=== PATIENT | male | born 2000 | race Two or more races ===

== ENCOUNTER 2018-03-26 02:21 | Emergency (ER) | payer BC ==
[~2018-03-26] VITALS: Ht 165.1 cm; Wt 63.5 kg
[2018-03-26 02:33] VITALS: BP 125/75
--- NOTE | 2018-03-26 03:11 | PHYS DOC ---
Past Medical History Past Medical History: No Pertinent History Past Surgical History: No Surgical History Alcohol Use: None Drug Use: None Adult General Chief Complaint Chief Complaint: FOOT INJURY PAIN HPI HPI Patient is a 17 year old male presenting with concern over right ankle problem. Apparently he was in a soccer game this evening when he got home he realized he was having some trouble dorsiflexing his right ankle all the way he could still do it but he was asymmetric no pain no trauma no back pain no numbness Physical Exam Physical Exam Constitutional: Well developed, well nourished, no acute distress, non-toxic appearance. [] HENT: Normocephalic, atraumatic, bilateral external ears normal, oropharynx moist, no oral exudates, nose normal. [] Eyes: PERRLA, EOMI, conjunctiva normal, no discharge. [] Normal effort no increased work of breathing Back: No tenderness, no CVA tenderness. [] Extremities: No tenderness, no cyanosis, no clubbing, ROM intact, no edema. [] Pulses present no swelling of the ankle Neurologic: Patient does have subtle decreased strength with right ankle dorsiflexion plantar flexion is intact bilaterally. Patient is able to range his right ankle fairly well overall but is slightly reduced compared to the left. Psychologic: Affect normal, judgement normal, mood normal. [] Current Patient Data Vital Signs Vital Signs Date Time Temp Pulse Resp B/P (MAP) Pulse Ox O2 Delivery O2 Flow Rate FiO2 03/26/18 02:33 98.7 75 18 125/75 (92) 99 Room Air 98.7 EKG EKG [] Radiology/Procedures Radiology/Procedures [] Course & Med Decision Making Course & Med Decision Making Pertinent Labs and Imaging studies reviewed. (See chart for details) []17-year-old male with a very subtle mild possible foot drop on the right ankle /foot after a soccer game no back pain no other neurologic findings noted. (Is a compression mild peripheral neuropraxia here at the garcia level or ankle level. Patient was advised to wear Brian wrap ice Motrin gradual return to activity keep leg elevated. Dragon Disclaimer Dragon Disclaimer This electronic medical record was generated, in whole or in part, using a voice recognition dictation system. Departure Departure Impression: Primary Impression: Foot drop Disposition: 01 HOME, SELF-CARE Condition: STABLE Additional Instructions: Of the nerve supplying the foot in the garcia area from her soccer game. For the time being please rest ice and wear the Brian wrap and gradually return to normal activities. MONTRELL GUTIERREZ MD Mar 26, 2018 03:11
== END 2018-03-26 03:15 | disposition home or self-care (01) ==
LOC: ER 02:21
DX: M21.371 Foot drop, right foot (principal)
CPT/HCPCS: 99282